=== PATIENT | female | born 1960 | race Two or more races ===

== ENCOUNTER → 2023-12-09 | Day surgery (SDC) | payer MEDICARE, MEDICAID, SELFPAY ==
--- NOTE | 2023-12-08 10:14 | EKG_ITS ---
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
[2023-12-08 10:33] VITALS: BMI 20.8
[2023-12-08 13:18] LABS: Basophils # (Auto) 0.1 Thou/mm3 (0.0-0.2); Basophils % (Auto) 1 % (0-2.5); Eosinophils # (Auto) 0.1 Thou/mm3 (0.0-0.5); Eosinophils % (Auto) 3 % (0-10); Hematocrit 40.7 % (36.0-46.0); Hemoglobin 12.9 g/dL (12.0-16.0); Immature Granulocytes % (Auto) 0 % (0-0); Immature Granulocytes Auto 0.01 Thou/mm3 (0.00-0.00); Lymphocytes # (Auto) 1.2 Thou/mm3 (1.0-4.8); Lymphocytes % (Auto) 28 % (10-50); Mean Corpuscular HGB Conc 31.7 g/dl (31.0-37.0); Mean Corpuscular Hemoglobin 28.9 pg (25.0-35.0); Mean Corpuscular Volume 91 fL (80-100); Monocytes # (Auto) 0.4 Thou/mm3 (0.0-0.8); Monocytes % (Auto) 9 % (0-12); Neutrophils # (Auto) 2.5 Thou/mm3 (1.8-7.7); Neutrophils % (Auto) 59 % (37-80); Nucleated Red Blood Cell % 0 /100 WBC (0); Platelet Count 212 Thou/mm3 (140-440); RDW Standard Deviation 44.2 fL (36.4-46.3); Red Blood Count 4.47 Miln/mm3 (4.00-5.20); White Blood Count 4.3 Thou/mm3 (3.6-11.0)
[2023-12-08 13:27] LABS: Anion Gap 5 (7-16); BUN/Creatinine Ratio 20 Ratio (12-20); Blood Urea Nitrogen 12 mg/dL (9-23); Calcium 9.4 mg/dL (8.3-10.6); Carbon Dioxide 29.7 mMol/L (20.0-31.0); Chloride 106 mMol/L (98-107); Creatinine (Component) 0.6 mg/dL (0.6-1.3); Estimated Creatinine Clearance 63.8 mL/min (>60); Glucose 97 mg/dL (74-106); Osmolality,Calculated 280 (275-295); Potassium 3.9 mMol/L (3.4-5.1); Sodium 141 mMol/L (136-145); eGFR > 60 See Note
[2023-12-08 13:31] LABS: INR 0.9 (0.9-1.3); Partial Thromboplastin Time 28.2 Seconds (22.0-36.0); Prothrombin Time 10.4 Seconds (9.0-12.2)
--- NOTE | 2023-12-08 15:49 | ESHP_ITS ---
RE: VANIA MELENDEZ : 1960 DATE OF ADMISSION: 12/09/2023 The patient came to my office on 12/05/2023 for detailed preoperative history and physical examination. HISTORY OF PRESENT COMPLAINT: As per history, the patient has got pain in the right shoulder. The pain is quite bad and it is going on for a few months. However, the patient stated that she ran into a door and injured her right shoulder. The patient stated that this happened about 4-5 years back. However, the pain is getting bad. The patient graded intensity of the pain to be 8-9/10. Besides that the range of motion is severely restricted. The patient is unable to do household activities and activity of daily living. The patient is unable to sleep. MRI scan was obtained and revealed rotator cuff tear. PAST MEDICAL HISTORY: No history of diabetes mellitus, high blood pressure, asthma, seizure, chest pain, myocardial infarction, or bleeding disorder. The patient has history of hot flashes. PAST SURGICAL HISTORY: Include cholecystectomy, nose surgery and hysterectomy. DRUG HISTORY: The patient is taking ibuprofen and muscle relaxants. ALLERGIES: NIL KNOWN. FAMILY HISTORY AND SOCIAL HISTORY: The patient had been smoking. Denies drinking and is not working. PHYSICAL EXAMINATION: GENERAL: Normal-built lady. VITAL SIGNS: Pulse 93 per minute, blood pressure 141/93. NECK: Soft, supple. No mass felt. Trachea is centrally placed. CARDIOVASCULAR: First and second heart sounds normal. No murmur heard. LUNGS: Bilateral vesicular breath sounds. CHEST: Clear. ABDOMEN: Soft. No mass felt. Bowel sounds present. BREASTS: Not indicated in this case. RECTAL: The patient is advised to see the family physician for rectal examination. EXTREMITIES: Right shoulder examination revealed no wasting and/or deformity. There is significant tenderness at AC joint. Active range of motion 0-80 degrees of abduction and 0-90 degrees of forward flexion. No further range of motion is possible. Internal rotation is severely restricted. 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 DIAGNOSTIC DATA: MRI scan obtained in 08/2023 revealed a large 4 cm full-thickness rotator cuff tear. ASSESSMENT AND PLAN: Besides that the patient has got moderate degenerative joint disease changes at AC joint. Diagnosis and prognosis were explained to the patient. With the help of pictures and diagram and posters and a shoulder model, the problem was explained to the patient. Surgical procedure was also explained in detail. I explained that I do open surgery. I also explained that some surgeons do arthroscopic surgery and she would like to have arthroscopic procedure. I can refer her out; however, patient wanted to go ahead with the open surgery. Risk with anesthesia was explained and that includes, but not limited to reaction to anesthetic agents, cardiac arrest and rarely it might be fatal. Risk with operation includes infection, and if that happens, the patient may need further surgical procedure. Other risks include delayed healing, wound dehiscence, etc. Sometime rare complication happens, and if that happens, that has to be taken care of. No guarantee is given regarding outcome of the procedure and/or relief of symptoms. Appropriate lab work being done. The patient was sent to primary care physician and has been cleared for surgical procedure. The surgical clearance was obtained on 11/08/2023. Accordingly, surgery is booked for 12/09/2023. DT: 12:13:07 TT: 15:47:00 Ref: [id number] - TID: [id number]
[2023-12-09 09:53] VITALS: BP 144/87; PULSE 71; RESP 19; TEMP 36.6; O2SAT 98; BMI 21.2
--- NOTE | 2023-12-09 10:02 | SUR.PREOP ---
Last ate muffin with butter and jelly, water and orange juice at [address] Mcknight, he stated, It is okay to proceed surgery because surgery will be at 1400.
[2023-12-09] MEDS: RINGERS LACTATED 1000 ML 1,000 ML 20 ML IV (10:05)
--- NOTE | 2023-12-09 10:59 | CHAP ---
Patient was sleeping. Prayed by bedside for her.
[2023-12-09 13:59] VITALS: BP 136/85; PULSE 84; RESP 18; TEMP 36.9; O2SAT 97
== END | disposition home or self-care (01) ==
LOC: S2EX 09:16
PROVIDERS: Anesthesiology; PCP Family Medicine; Referring Provider Orthopaedic Surgery; Visit Provider Orthopaedic Surgery
DX: M76.891 Other specified enthesopathies of right lower limb, excluding foot (principal); Z53.8 Procedure and treatment not carried out for other reasons; Z01.810 Encounter for preprocedural cardiovascular examination
CPT/HCPCS: 36415; 80048; 85025; 85610; 85730; 93005; J1100; J2704; J2795; J7120

== ENCOUNTER → 2024-06-08 | Outpatient (CLI) | payer MEDICARE, MEDICAID, SELFPAY ==
--- NOTE | 2024-06-08 12:20 | XR_ITS ---
Examination: Bone densitometry Date and time of exam:June 08, 2024 1221 hours INDICATIONS: Menopause age 39, diagnosis rheumatoid arthritis Technique: Lumbar spine and hip total bone mineralization values of an calculated. Peak reference and age match control results have been displayed. Findings: Lumbar spine total bone mineralization is1.229 gm/cm2. This is 1.7 standard deviations above peak reference. This is 3.5 standard deviations above age-matched controls. Hip total bone mineralization is 0.876 gm/cm2 This is 0.6 standard deviations below peak reference. This is 0.5 standard deviations above age-matched controls Impression: There is normal mineralization based on lumbar spine measurements. There is osteopenia based on hip measurements
== END | disposition home or self-care (01) ==
PROVIDERS: PCP Student in an Organized Health Care Education/Training Program; Referring Provider Student in an Organized Health Care Education/Training Program; Visit Provider Student in an Organized Health Care Education/Training Program
DX: Z13.820 Encounter for screening for osteoporosis (principal); M85.88 Other specified disorders of bone density and structure, other site
CPT/HCPCS: 77080